=== PATIENT | female | born 1995 | race Caucasian/White ===

== ENCOUNTER 2018-07-07 14:33 | Emergency (ER) | payer OTHER ==
[~2018-07-07] VITALS: Ht 157.5 cm; Wt 59.8 kg
[2018-07-07 14:36] VITALS: Ht 157.5 cm; Wt 59.8 kg
[2018-07-07] MEDS ORDERED: TRIA15OI9 TOP (16:48)
--- NOTE | 2018-07-07 16:58 | ERD ---
ER Documentation Chief Complaint Chief Complaint RT AXILLA LUMP X 3 MONTHS HPI 23-year-old female with no significant past medical history presenting to the emergency department complaining of a lump in her right axillary region as well as a rash to her left axillary region. Symptoms have been ongoing intermittentl y for the past 3 months but worsened over the past 3 weeks. She took no medication for relief of symptoms. Symptoms are overall moderate in severity. She denies any fevers, chills, or other symptoms at this time. ROS All systems reviewed and are negative except as per history of present illness. Medications Home Meds Active Scripts Triamcinolone Acetonide (Triamcinolone Acetonide) 0.5% - 15 Gm Oint..gm., 1 APPLIC TOP BID, #1 TUB Prov:LORETA PEPPER PA-C 07/07/18 PMhx/Soc Medical and Surgical Hx: pt denies Medical Hx FmHx Family History: No diabetes Physical Exam Vitals Vital Signs Date Temp Pulse Resp B/P (MAP) Pulse Ox O2 O2 Flow FiO2 Time Delivery Rate 07/07/18 98.2 92 18 130/74 100 14:36 (92) Physical Exam Const: No acute distress Head: Atraumatic Eyes: Normal Conjunctiva ENT: Normal External Ears, Nose and Mouth. Neck: Full range of motion. No meningismus. Resp: No respiratory distress. Skin: There is erythema with some mild plaque formation noted to the left axillary region. There is no lymphatic streaking. No warmth. No skin sloughing. There is a small palpable freely movable subdermal lump measuring approximately 0.5 cm x 0.5 cm noted to the right axilla. Back: No midline or flank tenderness Ext: No cyanosis, or edema Neur: Alert and oriented. Psych: Normal Mood and Affect Procedures/MDM 23-year-old female presented to the emergency department with signs and symptoms most consistent with irritant or contact dermatitis of the left axillary region as well as a lipoma noted to the right axillary region. Patient is nontoxic and well-appearing. Her vital signs are stable. Patient's dermatologic symptoms have stabilized while they have been evaluated in the department and are appropriate for outpatient work up. No evidence of Neil Emanuel's syndrome, Kawasaki's, or sepsis. No evidence of life-threatening pathology at time of discharge. Pt/family in agreement with discharge plan/diagnosis. Pt/family advised to return immediately with any new or worsening symptoms. Follow-up with primary care physician within the next 1-2 days. Disclaimer: Inadvertent spelling and grammatical errors are likely due to EHR/dictation software use and do not reflect on the overall quality of patient care. Also, please note that the electronic time recorded on this note does not necessarily reflect the actual time of the patient encounter. Departure Diagnosis: Primary Impression: Rash and other nonspecific skin eruption Condition: Fair Patient Instructions: Self-Care for Skin Rashes Referrals: [facility] YOU HAVE RECEIVED A MEDICAL SCREENING EXAM AND THE RESULTS INDICATE THAT YOU DO NOT HAVE A CONDITION THAT REQUIRES URGENT TREATMENT IN THE EMERGENCY DEPARTMENT. FURTHER EVALUATION AND TREATMENT OF YOUR CONDITION CAN WAIT UNTIL YOU ARE SEEN IN YOUR DOCTORS OFFICE WITHIN THE NEXT 1-2 DAYS. IT IS YOUR RESPONSIBILITY TO MAKE AN APPOINTMENT FOR FOLOW-UP CARE. IF YOU HAVE A PRIMARY DOCTOR --you should call your primary doctor and schedule an appointment IF YOU DO NOT HAVE A PRIMARY DOCTOR YOU CAN CALL OUR PHYSICIAN REFERRAL HOTLINE AT IF YOU CAN NOT AFFORD TO SEE A PHYSICIAN YOU CAN CHOSE FROM THE FOLLOWING [facility] [address] [facility]. [facility] [address] [facility] [facility] [address] [facility] [facility] [address] [facility]. [facility] [address] [facility]. [facility]. [address] Additional Instructions: Call your primary care doctor TOMORROW for an appointment during the next 1-2 days.See the doctor sooner or return here if your condition worsens before your appointment time. LORETA PEPPER PA-C Jul 07, 2018 16:58
== END 2018-07-07 17:13 | disposition home or self-care (01) ==
LOC: FTE 14:33
DX: R21 Rash and other nonspecific skin eruption (principal)
CPT/HCPCS: 99283